=== PATIENT | female | born 1975 | race Two or more races ===

== ENCOUNTER 2017-02-03 17:24 | Emergency (ER) | payer MEDICARE, OTHER ==
[~2017-02-03] VITALS: Ht 167.6 cm; Wt 56.7 kg
[2017-02-03 17:54] VITALS: BP 108/70
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
[2017-02-03 18:36] LABS: APPEARANCE,URINE SLIGHTLY CLOUDY; KETONES,URINE NEGATIVE (NEGATIVE); LEUKOCYTE ESTERASE ,URINE 2+ (NEGATIVE); NITRITE,URINE POSITIVE (NEGATIVE); PH,URINE 8 (4.5-8.0); PROTEIN,URINE NEGATIVE (NEGATIVE); UROBILINOGEN,URINE NORMAL MG/DL (0.0-1.0)
[2017-02-03] MEDS ORDERED: Ciprofloxacin 500mg tab ORAL ONE (18:45)
[2017-02-03] MEDS ORDERED: CIPROFLOXACIN500 M2 ORAL (18:46)
[2017-02-03 18:47] LABS: BACTERIA,URINE MANY /HPF; RBC,URINE 0-2 /HPF (0 - 2); SQUAMOUS EPITHELIAL CELL,UR FEW /LPF (NONE/OCC)
[2017-02-03] MEDS ORDERED: MAGNESIUM CITR296 M1 PO (18:56)
[2017-02-03 20:30] VITALS: BP 110/69
[2017-02-03 21:25] VITALS: BP 107/68
== END 2017-02-03 21:25 ==
LOC: EDBD 17:24 → EMR 19:21
DX: N30.01 Acute cystitis with hematuria (principal); Z88.2 Allergy status to sulfonamides; Z88.6 Allergy status to analgesic agent; Z91.018 Allergy to other foods; G82.20 Paraplegia, unspecified
CPT/HCPCS: 81003; 81025; 87086; 87181; 99283